=== PATIENT | female | born 1950 | race Caucasian/White ===

== ENCOUNTER 2017-04-06 15:56 | Emergency (ER) | payer BC ==
[2017-04-06] MEDS ORDERED: diphenhydrAMINE 50 MG/ML VIAL ×2 (16:17)
[2017-04-06] MEDS ORDERED: FAMOTIDINE 20 MG/2 ML VIAL ×2 (16:17)
[2017-04-06] MEDS: diphenhydrAMINE 50 MG/ML VIAL IV ×2 (16:22)
[2017-04-06] MEDS: FAMOTIDINE 20 MG/2 ML VIAL IVP ×2 (16:28)
[2017-04-06] MEDS: IV NORMAL SALINE 1000ML BAG 1,000 ML IV ×2 (16:28)
[2017-04-06 16:33] LABS: BASO % 0 % (0-3); EOS % 0 % (0-3); HEMOGLOBIN 18.3 g/dL (12.0-15.5); LYMPH # 1.2 x10^3/uL (1.0-4.8); LYMPH % 6 % (24-48); MEAN CORPUSCULAR HEMOGLOBIN 32 pg (25-35); MEAN CORPUSCULAR HGB CONC 35 g/dL (31-37); MEAN CORPUSCULAR VOLUME 91 fL (79-100); MONO # 0.4 x10^3/uL (0.0-1.1); MONO % 2 % (0-9); NEUT # 17.6 x10^3uL (1.8-7.7); NEUT % 91 % (31-73); PLATELET COUNT 351 x10^3/uL (140-400); RED BLOOD COUNT 5.71 x10^6/uL (3.50-5.40); RED CELL DISTRIBUTION WIDTH 12.6 % (11.5-14.5); WHITE BLOOD COUNT 19.3 x10^3/uL (4.0-11.0)
[2017-04-06 16:34] LABS: ADD MAN DIFF? YES
[2017-04-06 17:25] LABS: % BANDS 9 % (0-9); % LYMPHS 9 % (24-48); % MONOS 3 % (0-10); % SEGS 79 % (35-66); PLT ESTIMATE ADEQUATE (ADEQUATE)
[2017-04-06 17:40] LABS: ANION GAP 14 (6-14); BLOOD UREA NITROGEN 18 mg/dL (7-20); CALCIUM 8.7 mg/dL (8.5-10.1); CARBON DIOXIDE 23 mmol/L (21-32); CHLORIDE 103 mmol/L (98-107); CREATININE 0.9 mg/dL (0.6-1.0); GLUCOSE 169 mg/dL (70-99); MAGNESIUM 1.8 mg/dL (1.8-2.4); SODIUM 140 mmol/L (136-145)
[2017-04-06 17:56] LABS: POTASSIUM 2.9 mmol/L (3.5-5.1)
[2017-04-06] MEDS: POTASSIUM CHLORIDE 20 MEQ TABLET.ER. PO ×2 (18:21)
== END 2017-04-06 18:54 | disposition home or self-care (01) ==
LOC: ER 15:56
DX: T78.2XXA Anaphylactic shock, unspecified, initial encounter (principal); E87.6 Hypokalemia
CPT/HCPCS: 36415; 80048; 83735; 85007; 85025; 96361; 96374; 96375; 99284-25; J1200; J7030; S0028